=== PATIENT | female | born 1975 | race African-American/Black ===

== ENCOUNTER 2018-09-10 10:08 | Inpatient (IN) ==
--- NOTE | 2018-09-10 10:33 | PROVIDER DOCUMENTATION ---
HPI-Abdominal Pain/GI Problem - General Chief Complaint: Nausea/Vomiting Stated Complaint: VOMITING Time Seen by Provider: 09/10/18 10:23 Source: patient Allergies/Adverse Reactions: Patient Allergies Allergy/AdvReac Type Severity Reaction Status Date / Time No Known Allergies Allergy Verified 09/10/18 11:25 Home Medications: Home Medication List Medication Instructions Recorded Confirmed Last Taken Type Clonazepam 2 mg PO DAILY 12/14/14 12/14/14 12/13/14 History Cyclobenzaprine [Flexeril] 10 mg PO TID PRN PRN #12 tablet 12/14/14 Unknown Rx Naproxen 500 mg PO BID PRN PRN #20 tablet 12/14/14 Unknown Rx Paroxetine [Paxil] 20 mg PO DAILY 12/14/14 12/14/14 12/13/14 History Naproxen 500 mg PO BID PRN PRN #60 tablet 01/24/18 Unknown Rx - History of Present Illness-ABD Nature of Presenting Problems: [id number] presents to the ER with c/o N/V/D x 3 days. She states that each time she eats that it make her very nauseated and she immediately has diarrhea. She has c/o RUQ pain that radiates to her back. Abdominal Pain Onset Location: reports: RUQ, epigastric Onset/Duration: reports: 3 days ago Associated Symptoms: reports: diarrhea, vomiting Last BM: this morning Similar Symptoms Previously?: No Recently seen or treated by another doctor?: No Review of Systems - Adult - REVIEW OF SYSTEMS - ADULT Constitutional: reports: see HPI. denies: chills, fever Eyes: reports: no symptoms reported Ears, Nose, Mouth & Throat: reports: no symptoms reported Cardiovascular: reports: no symptoms reported. denies: chest pain Respiratory: reports: no symptoms reported. denies: cough, dyspnea on exertion, wheezing Gastrointestinal: reports: no symptoms reported, abdominal pain, diarrhea, nausea, poor appetite, vomiting. denies: hematemesis, constipation Genitourinary: reports: no symptoms reported. denies: dysuria, flank pain, hematuria Musculoskeletal: reports: no symptoms reported Integumentary: reports: no symptoms reported Neurological: reports: no symptoms reported Psychiatric: reports: no symptoms reported Endocrine: reports: no symptoms reported Hematologic/Lymphatic: reports: no symptoms reported Allergic/Immunologic: reports: no symptoms reported All Other Systems: Reviewed and Negative Past History - Adult - PAST MEDICAL HISTORY-ADULT Review of Records: reports: Old Records Reviewed, Nursing Assessment Review, Medications Reviewed, Social history reviewed & non-contributory. Major Childhood Illnesses: reports: denies history Cardiovascular: reports: denies history Respiratory: reports: denies history Gastrointestinal: reports: denies history Obstetrical/Gynecological: reports: denies history Genitourinary: reports: denies history Musculoskeletal: reports: denies history Neurological: reports: headaches/migraines Psychiatric: reports: anxiety, depression Endocrine/Immune: reports: denies history Other Conditions: reports: denies history - IMMUNIZATION STATUS Childhood Immunizations: See Nurse Assessment Flu Vaccine: See Nurse Assessment - FAMILY HISTORY Family History: reviewed, not pertinent - SOCIAL HISTORY Smoking: denies Substance Use: denies Living Situation: family Physical Exam-General - PHYSICAL EXAM-ADULT Initial Vital Signs Reviewed: Yes - CONSTITUTIONAL General Appearance: appears well, alert, no apparent distress - EYES Eyes: PERRL/EOMI, pink conjunctivae - HEAD, EARS, NOSE, MOUTH & THROAT HENMT: normocephalic/atraumatic, moist mucous membranes, normal ENT inspection - NECK Neck: non-tender, full range of motion, supple - RESPIRATORY Respiratory: chest non-tender, lungs clear, normal breath sounds - CARDIOVASCULAR Cardiovascular: normal peripheral pulses, regular rate, rhythm - GASTROINTESTINAL (ABDOMEN) Abdominal Exam: normal bowel sounds, tenderness (RUQ), Chatman's sign - LYMPHATIC Lymphatic: no adenopathy - MUSCULOSKELETAL Back Exam: normal inspection Extremity: normal range of motion, non-tender, normal gait - SKIN Integumentary: normal color, normal turgor, warm/dry - NEUROLOGIC Neurologic: care professionals II-XII nml as tested, grossly normal - PSYCHIATRIC Psych/Mental Status: oriented x 3 Progress - PLAN OF CARE/RESULTS Progress/Plan/Lab Results: Vital Signs - 8 hr 09/10/18 10:13 Temperature 97.8 F Pulse Rate 81 Respiratory Rate 18 Blood Pressure 145/94 O2 Sat by Pulse Oximetry 100 Orders Category Date Time Status Saline Loc NOW Care 09/10/18 10:28 Active US GB < RUQ (LIMITED) [US] Stat Exams 09/10/18 10:27 Ordered CBC WITH ELECTRONIC DIFF [HEME] Stat Lab 09/10/18 10:28 Uncollected COMPREHENSIVE METABOLIC PANEL [CHEM] Stat Lab 09/10/18 10:28 Uncollected patient verbalizes an understanding of POC and agrees with treatment rendered here today. - ULTRASOUND (By Radiology) 1 US Study: Gallbladder Impression: Abnormal (COMMENT: The pancreas is unremarkable in appearance. The aorta and inferior vena cava are normal in appearance. Liver is slightly inhomogeneous in echotexture but there are no discrete masses. There is antegrade flow in the portal vein. There is some prominence of the right renal collecting system. There are no renal masses. There is a fairly large stone in the gallbladder measuring over 2 cm in diameter. The gallbladder wall is not thickened and there is no evidence of para cholecystic fluid. There is a positive sonographic Chatman sign. The common bile duct measures 4 mm. IMPRESSION: Cholelithiasis and possible acute cholecystitis.), See EMR Report - CONSULTS/PCP/HOSPITALIST Notification #1 *Consult/PCP/Hospitalist*: Dr Teresa Time Discussed: 11:25 Reason/Comments: cholecystitis Consult Disposition: Admit Departure - Departure Date of Disposition Decision: 09/10/18 Time of Disposition Decision: 11:19 DIAGNOSIS: Acute cholecystitis Disposition: ADMITTED INPATIENT 09 Certified Medical Emergency: Emergent Condition: Critical Additional Freetext Instructions: ED Follow Up Instructions: You have been treated by a care provider in the Emergency Department. These instructions are being provided to you so you can have an understanding of how to care for yourself upon discharge. Upon discharge from the Emergency Department, you are responsible for making arrangements for follow-up care by a physician of your choice. Take all prescribed medications as directed. Return to the Emergency Department immediately for any new or worsening symptoms. You may call the Physician Referral phone number at [phone] to obtain a list of Physicians who are taking new patients. Referrals and Follow-Ups: None,PCP [Primary Care Provider] - - Critical Care Note This patient required my direct & personal management of CC.: No Attestation - Physician/ KATIA Attestation Patient care was provided by Advanced Practice Provider:: Yes Advanced Practice Provider:: Josiah Quiñonez Advanced Practice Provider documentation review:: The Mid-level provider documentation, treatment plan and medical decision making was reviewed by the physician who agrees with all treatment and medical decision making by the MLP. The physician spent face to face time with patient:: No Advanced Practice Provider documentation review:: Supervising physician onsite and consulted in the evaluation and care of this patient. The physician did not have a face to face encounter with the patient.
--- NOTE | 2018-09-10 11:08 | Diag Imaging Result Doc PS360 ---
EXAM: US GB < RUQ (LIMITED) 09/10/2018 HISTORY: N/V URQ pain TECHNIQUE: Right upper quadrant ultrasound COMMENT: The pancreas is unremarkable in appearance. The aorta and inferior vena cava are normal in appearance. Liver is slightly inhomogeneous in echotexture but there are no discrete masses. There is antegrade flow in the portal vein. There is some prominence of the right renal collecting system. There are no renal masses. There is a fairly large stone in the gallbladder measuring over 2 cm in diameter. The gallbladder wall is not thickened and there is no evidence of para cholecystic fluid. There is a positive sonographic Chatman sign. The common bile duct measures 4 mm. IMPRESSION: Cholelithiasis and possible acute cholecystitis. Electronically signed by Adonis Schwarz 09/10/2018 11:05 AM
[2018-09-10 11:35] LABS: BASO# 0.04 X1000 (0.0-0.2); BASO% 1.2 % (0.0-0.8); EOS# 0.04 X1000 (0.0-0.7); EOS% 1.2 % (0.0-10.0); HEMATOCRIT 26.8 % (37.0-47.0); HEMOGLOBIN 7.2 g/dL (12.0-16.0); LYMPH# 1.14 X1000 (1.2-3.4); LYMPH% 34.4 % (20.5-51.1); MCHC 26.9 g/dL (33-37); MPV 9.7 FL (7.4-10.4); NEUT# 1.89 X1000 (1.4-6.5); NEUT% 57.2 % (42.2-75.2); PLT 355 X1000 (130-400); RDW 18.2 % (11.5-14.5); WBC 3.31 X1000 (4.8-10.8)
[2018-09-10 11:50] LABS: CHLORIDE 102 mmol/L (98-107); POTASSIUM 4.3 mmol/L (3.5-5.1); SODIUM 137 mmol/L (136-145)
[2018-09-10 11:51] LABS: AGAP 11; ALBUMIN 3.8 g/dL (3.5-5.0); ALKALINE PHOSPHATASE 63 U/L (32-104); BUN 8 mg/dL (8-22); COSMO 272; CREATININE 0.6 mg/dL (0.5-0.9); ESTIMATED GFR > 60; GLUCOSE 87 mg/dL (70-104); GOT 17 U/L (10-30); GPT 8 U/L (10-36); TCO2 24 mmol/L (25-35); TOTAL BILIRUBIN < 0.15 mg/dL (0.20-1.00); TOTAL PROTEIN 7.6 g/dL (6.3-8.3)
[2018-09-10 12:02] LABS: EOS 4 % (1-10); HYPOCHROM 2+; LYMPHS 39 % (21-51); MICROCYTOSIS 2+; MONO 6 % (1-9); SEGS 51 % (42-75)
[2018-09-10] MEDS ORDERED: ZOFRAN IV PRN (13:39)
[2018-09-10] MEDS: MORPHINE IV PRN ×2 (14:01→21:15)
[2018-09-10] MEDS: ZOSYN 3.375 GM in NS 50 ML IV SCH ×2 (14:03→21:15)
[2018-09-10] MEDS: LR 1,000 ML IV SCH (14:03)
--- NOTE | 2018-09-10 16:33 | HISTORY AND PHYSICAL ---
ADMITTING DIAGNOSIS: Cholecystitis. HISTORY OF PRESENT ILLNESS: A 43-year-old female presenting with 3 days history of nausea, vomiting, diarrhea. She complained of right upper quadrant pain. She has had some intermittent right upper quadrant pain. It seems to be intermittent but does not seem to have a classic postprandial situation, but she was seen in the emergency department and had an ultrasound that showed cholecystitis. Again, she is hurting in the right upper quadrant epigastric. PAST MEDICAL HISTORY: Scoliosis. PAST SURGICAL HISTORY: Includes 1. Bilateral tubal ligation. 2. Tonsillectomy. HOME MEDICATIONS: 1. Flexeril. 2. Paxil. 3. Naproxen. ALLERGIES: None. FAMILY HISTORY: Positive for diabetes. SOCIAL HISTORY: The patient reports vaping. REVIEW OF SYSTEMS: A full 10-point review of systems obtained, negative except as specified in HPI. PHYSICAL EXAMINATION: VITAL SIGNS: Patient is currently afebrile. Her vital signs are stable. GENERAL: No acute distress. HEENT: Normocephalic, atraumatic. Pupils equal, round, reactive to light. Mucous membranes moist. Oropharynx benign. NECK: Supple. Trachea midline. CARDIOVASCULAR: Regular rate and rhythm. LUNGS: Grossly clear. ABDOMEN: Soft. Tender to palpation in right upper quadrant. Possible Chatman sign. EXTREMITIES: Moves all extremities. NEUROLOGIC: Grossly intact. SKIN: No signs of jaundice. VASCULAR: All extremities perfused. LABORATORY DATA: White blood cell count 3, hematocrit 26, platelet count 355,000. She does have an iron-deficiency anemia of 67.0 of the MCV. Remainder of labs reviewed. Of note, her bilirubin is essentially non registered. AST, ALT and alkaline phosphatase are all normal. Ultrasound reviewed by note and images reveal at least a large stone noted in her gallbladder. Common bile duct is not dilated. The gallbladder wall does not look distended or thickened. ASSESSMENT AND PLAN: A 43-year-old with cholecystitis. At this time, the patient reports right upper quadrant pain. CT scan shows at least the possibility of cholecystitis. We started her on antibiotics. We discussed with her risks, benefits, alternatives for surgical intervention for cholecystectomy. The risks including but not limited to bleeding, infection, risk of anesthesia, risk of common bile duct injury and bile leak, risk of injury to other organs discussed. We will plan on doing surgical intervention tomorrow. She will be on antibiotics until then. cc: Donovan Teresa MD
[2018-09-11] MEDS: MORPHINE IV PRN ×3 (00:31→13:29)
[2018-09-11] MEDS: LR 1,000 ML IV SCH ×2 (00:46→14:01)
[2018-09-11] MEDS: ZOSYN 3.375 GM in NS 50 ML IV SCH ×3 (03:07→13:59)
--- NOTE | 2018-09-11 07:27 | GENERAL SURGERY PROGRESS NOTE ---
DATE: 09/11/2018 SUBJECTIVE: Patient seems to be doing about the same. OBJECTIVE: Vital Signs: The patient is currently afebrile. Her vital signs are stable. General Examination: No acute distress. HEENT: Normocephalic, atraumatic. Pupils equal, round, reactive to light. Mucous membranes moist. Oropharynx benign. Neck: Supple. Trachea midline. Cardiovascular: Regular rate and rhythm. Lungs: Grossly clear. Abdomen: Soft. Tender to palpation, right upper quadrant. Extremities: Moves all extremities. Neurologic: Grossly intact. Skin: No signs of jaundice. Vascular: All extremities perfused. Laboratory: Reviewed from yesterday. ASSESSMENT AND PLAN: A 43-year-old female with cholecystitis. Cholecystitis. At this time, we will plan on surgical intervention. Discussed with her the risks, benefits, and alternatives yesterday, and documented in the chart. We will proceed today. cc: Donovan Teresa MD
[2018-09-11] MEDS ORDERED: QUELICIN (DOSE) ONE (10:28)
[2018-09-11] MEDS ORDERED: MARCAINE 0.25% PF/EPI 1:200,000 ONE (10:28)
[2018-09-11] MEDS ORDERED: SODIUM CHLORIDE 0.9% ONE (10:28)
[2018-09-11] MEDS ORDERED: LR 1,000 ML ONE (10:28)
[2018-09-11] MEDS ORDERED: XYLOCAINE-MPF 2% ONE (10:28)
[2018-09-11] MEDS ORDERED: DIPRIVAN 1% ONE (10:29)
[2018-09-11] MEDS ORDERED: ROBINUL ONE ×2 (10:48→11:10)
[2018-09-11] MEDS ORDERED: VERSED ONE (10:55)
[2018-09-11] MEDS ORDERED: DECADRON ONE (11:10)
[2018-09-11] MEDS ORDERED: ZEMURON ONE (11:10)
[2018-09-11] MEDS ORDERED: NEOSTIGMINE ONE (11:10)
[2018-09-11] MEDS ORDERED: ZOFRAN ONE (11:10)
[2018-09-11] MEDS ORDERED: FENTANYL ONE (11:13)
[2018-09-11] MEDS ORDERED: TORADOL ONE (11:32)
[2018-09-11] MEDS ORDERED: BRIDION ONE (11:59)
--- NOTE | 2018-09-11 13:56 | OPERATIVE NOTE ---
PROCEDURE DATE: 09/11/2018 PREOPERATIVE DIAGNOSIS: Acute cholecystitis. POSTOPERATIVE DIAGNOSIS: Acute cholecystitis. PROCEDURE: Laparoscopic cholecystectomy. SURGEON: Donovan Teresa MD. API ARCHITECT: Dr. Freeman. Dr. Freeman assisted with the entirety of the case. His presence was crucial for completion of the case. ANESTHESIA: General endotracheal. INTRAOPERATIVE FINDINGS: As dictated. COMPLICATIONS: None at the time of this dictation. ESTIMATED BLOOD LOSS: 20 mL. SPECIMENS REMOVED: Gallbladder. BRIEF HISTORY: A 43-year-old female presenting with right upper quadrant pain, felt that she had cholecystitis. The risks, benefits, and alternatives were discussed. All questions answered. DESCRIPTION OF PROCEDURE IN DETAIL: After informed consent was obtained, patient brought to the operative theatre, transferred to the operating table, placed in the supine position. General endotracheal anesthesia was then performed without complication. A formal time-out was then performed confirming patient, date, procedure. All were in agreement. At that time, attention was given to the abdomen. An infraumbilical incision was made through which using Optiview technique we inserted 11 mm trocar. Connected to insufflation, pneumoperitoneum was achieved. Under direct visualization, we placed 3 more trocars, all 5 mm; 1 subxiphoid and 2 in the right upper quadrant. Using these, the gallbladder was identified. It was retracted cephalad. We did drain some of the fluid from the gallbladder to facilitate exposure. We retracted cephalad, dissected out the cystic duct and cystic artery to achieve the critical view of safety. We doubly clipped and ligated the cystic duct and cystic artery and dissected the gallbladder off the gallbladder fossa. We then placed the gallbladder into an endobag and brought out through the infraumbilical incision. We then reexamined the liver. There was some bleeding which we stopped with electrocautery. At the completion of the case, there was no active bleeding. We irrigated out the abdomen until the suction fluid was clear. We then removed the gallbladder from the endobag. We closed the infraumbilical incision with 0 Vicryl on a Santi-David device. They removed the remaining trocars and closed the skin incisions with 4-0 Biosyn. The patient tolerated the procedure well and was transferred back to the recovery room. cc: Donovan Teresa MD
[2018-09-11] MEDS ORDERED: NORCO-10 PO PRN (15:20)
[2018-09-11 16:49] VITALS: BP 140/94
== END 2018-09-11 17:18 | disposition home or self-care (01) | DRG 419 ==
LOC: ED 10:08 → 4N 12:13
PROVIDERS: ADMIT Surgery; ATTEND Surgery
CPT/HCPCS: 76705; 80053; 85025; 86850; 86900; 86901; 88304; 94761; 94799; A9270; J0330; J1100; J1885; J2250; J2270; J2405; J2543; J3010; J7120